=== PATIENT | male | born 1975 | race African-American/Black ===

== ENCOUNTER 2018-03-26 20:48 | Emergency (ER) | payer SELFPAY ==
[~2018-03-26] VITALS: Ht 177.8 cm; Wt 100.0 kg
[2018-03-26 20:58] VITALS: BP 205/125; PULSE 88; RESP 18; TEMP 99; O2SAT 97
[2018-03-26] MEDS ORDERED: SODIUM CHLOR 0.9% 1000 ML INJ 1,000 ML IV SCH (20:58)
--- NOTE | 2018-03-26 20:58 | PD ---
HPI Chief Complaint: Shoulder pain Time Seen by Provider: 20:53 Travel History International Travel<30 days: No Contact w/Intl Traveler<30days: No Traveled to known affect area: No History of Present Illness HPI This is a 42-year-old male who presents via EMS for evaluation of left shoulder pain. He reports that 2 3 hours prior to arrival he slipped in his kitchen and fell, landing directly on his left shoulder. Denies any head injury. He felt immediate pain in his left shoulder which is moderate to severe, throbbing, constant, worse with any sort of movement. Denies any numbness or tingling distal to the injury site. Endorses drinking 4 beers today. He reports that he received 8 mg of morphine by EMS en route with minimal relief. He has no other complaints at this time. [facility] Social History Alcohol Use: No Tobacco Use: Yes Substance Use: Yes (Marijuana) Allergies-Medications (Allergen,Severity, Reaction): Coded Allergies: No Known Allergies (Unverified , 03/26/18) Reported Meds & Prescriptions Reported Meds & Active Scripts Active Tylenol-Codeine #3 (Acetaminophen-Codeine) 300-30 mg Tab 1 Tab PO Q6H PRN Review of Systems Except as stated in HPI: all other systems reviewed are Neg Physical Exam Narrative GENERAL: This is a well-developed well-nourished male who appears uncomfortable on initial examination. SKIN: Warm and dry. No open wounds. HEAD: Atraumatic. Normocephalic. EYES: Pupils equal and round. No scleral icterus. No injection or drainage. ENT: No nasal bleeding or discharge. Mucous membranes pink and moist. NECK: Trachea midline. No JVD. CARDIOVASCULAR: Regular rate and rhythm. No murmur appreciated. RESPIRATORY: No accessory muscle use. Clear to auscultation. Breath sounds equal bilaterally. GASTROINTESTINAL: Abdomen soft, non-tender, nondistended. Hepatic and splenic margins not palpable. MUSCULOSKELETAL: No obvious deformities. Deformity left shoulder with a gap in the glenohumeral joint. 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 Normal flexion and extension of the left wrist. Capillary refill less than 2 seconds all digits left hand. 2+ radial pulse. NEUROLOGICAL: Awake and alert. No obvious cranial nerve deficits. Motor grossly within normal limits. Normal speech. Data Data Last Documented VS Vital Signs Date Time Temp Pulse Resp B/P (MAP) Pulse Ox O2 Delivery O2 Flow Rate FiO2 03/26/18 20:58 99.0 88 18 205/125 (151) 97 Orders Orders Shoulder, Limited(2vws) (03/26/18 ) Propofol 200 Mg/20 Ml Inj (Diprivan 200 (03/26/18 21:00) Ecg Monitoring (03/26/18 20:58) Sodium Chlor 0.9% 1000 Ml Inj (Ns 1000 M (03/26/18 20:58) Shoulder, One View (03/26/18 ) Splint Or Brace Apply/Monitor (03/26/18 21:41) Shoulder, One View (03/26/18 ) Ed Discharge Order (03/26/18 22:21) MDM Medical Decision Making Medical Screen Exam Complete: Yes Emergency Medical Condition: Yes Medical Record Reviewed: Yes Differential Diagnosis Shoulder dislocation, proximal humeral fracture, scapular fracture, apical fracture, rotator cuff tear Narrative Course X-ray imaging left shoulder was obtained revealing a shoulder dislocation. The patient signed consents for procedural sedation and closed reduction of the left shoulder which was performed successfully. Shoulder sling and swath applied. After reduction was achieved the patient reportedly lifted his arm over his head and thrashed around while the x-ray fuel conversion technician was attempting to obtain postreduction x-ray. Therefore postreduction x-ray reveals persistent dislocation. Closed reduction was again performed and postreduction x-ray confirms normal anatomic alignment. Sling and swath applied. The patient will be discharged when he is sober. Procedures Procedure Narrative Closed reduction left shoulder: After conscious sedation was achieved closed reduction was achieved using traction and external rotation. The left arm was then placed in a sling. Capillary refill less than 2 seconds in all digits of the left hand, 2+ radial pulse after the procedure. Diagnosis Primary Impression: Dislocation of left shoulder joint Referrals: Orthopedist Additional Instructions: Sling, follow-up with an orthopedist in the next week, return for any emergent medical conditions. Med/Other Pt SpecificInfo: Prescription(s) given, Orthopedic Instructions Scripts Acetaminophen-Codeine (Tylenol-Codeine #3) 300-30 mg Tab 1 TAB PO Q6H Y for PAIN, #12 TAB 0 Refills Prov: Jose Butler MD 6/26/18 Disposition: 01 DISCHARGE HOME Condition: Stable Bruno,Dennis P. PA Mar 26, 2018 20:58
[2018-03-26] MEDS ORDERED: PROPOFOL 200 MG/20 ML AMP IV ONE (21:00)
--- NOTE | 2018-03-26 21:07 | PD ---
Physical Exam Date Seen by Provider: Mar 26, 2018 Time Seen by Provider: 21:03 Narrative The patient is a 42-year-old -[place] male was initially evaluated by the mid-level provider. Please refer to the initial history, physical, diagnostic evaluation, and treatment modality plan. The patient states he had approximately 4 beers to drink earlier tonight, fell on his left shoulder, he thinks he has a left shoulder dislocation. The patient is right-hand dominant. Symptoms are moderate. Worse with movement, slightly alleviated at rest and with morphine administered by EMS prior to arrival. Data Data Last Documented VS Vital Signs Date Time Temp Pulse Resp B/P (MAP) Pulse Ox O2 Delivery O2 Flow Rate FiO2 03/26/18 20:58 99.0 88 18 205/125 (151) 97 Orders Orders Shoulder, Limited(2vws) (03/26/18 ) Propofol 200 Mg/20 Ml Inj (Diprivan 200 (03/26/18 21:00) Ecg Monitoring (03/26/18 20:58) Sodium Chlor 0.9% 1000 Ml Inj (Ns 1000 M (03/26/18 20:58) Shoulder, One View (03/26/18 ) Splint Or Brace Apply/Monitor (03/26/18 21:41) Shoulder, One View (03/26/18 ) Ed Discharge Order (03/26/18 22:21) [facility] Medical Record Reviewed: Yes Supervised Visit with SAMREEN: Yes Interpretation(s) Last Impressions Shoulder X-Ray 03/26/18 0000 Signed Impressions: CONCLUSION: Interval relocation of the left humeral head. Shoulder X-Ray 03/26/18 0000 Signed Impressions: CONCLUSION: Continued dislocation of the left glenohumeral joint. Shoulder X-Ray 03/26/18 0000 Signed Impressions: CONCLUSION: Dislocation of the left shoulder. Differential Diagnosis Differential diagnosis includes shoulder dislocation, fracture, sprain, strain, acromioclavicular separation, rib fracture, nerve injury. Narrative Course I, Dr. Butler, have reviewed the advance practice practitioner's documentation and am in agreement, met with the patient face to face, made the diagnosis, and the medical decision making was done by me. *My assessment and Findings: Patient has tenderness over the left shoulder after falling earlier tonight on the left shoulder. Patient complains of pain with any type of movement of the left upper extremity. He is right-hand dominant. Physical examination reveals an apparent separation of the left shoulder. He is able to extend the left wrist. Intrinsic hand muscles on the left hand are intact. The patient denies any chronic medical problems for which he takes medications, does have a history of previous surgery on the neck and back as well as abdominal hernia repair with mesh. He denies taking any medications on a daily basis. X-ray of the left shoulder was obtained. X-ray reveals dislocation of the shoulder. The patient had conscious sedation with propofol, the shoulder was reduced. However, the patient awakened prior to post reduction x-ray and moved his left arm above his head, thus re-dislocating the affected shoulder. The patient was administered a second dose of propofol, the shoulder was reduced, placed in a sling, immediate x-ray was obtained which reveals proper reduction. The patient was then given a p.o. challenge, was able tolerate p.o. fluids. He was then ambulated, was able to ambulate was discharged home with family member. Procedures Procedure Narrative After the risks and benefits were discussed the following procedure was performed: MODERATE SEDATION: The patient was placed on a telemetry monitor and pulse oximetry. An ambu bag and suction was immediately available at bedside. The patient was monitored by the nurse. Oxygen saturation, heart rate and blood pressure were monitored. Procedural sedation was acheived using propofol. The patient was observed until awake and alert. Procedural Sedation time in attendance was 35 minutes. Diagnosis Primary Impression: Dislocation of left shoulder joint Qualified Codes: S43.005A - Unspecified dislocation of left shoulder joint, initial encounter Patient Instructions: General Instructions, Moderate Sedation (ED) Additional Instruction: Sling as directed. Follow-up with your primary physician and orthopedics. Ibuprofen as needed for pain. Apply ice to the affected area. Med/Other Pt SpecificInfo: Prescription(s) given Scripts Acetaminophen-Codeine (Tylenol-Codeine #3) 300-30 mg Tab 1 TAB PO Q6H Y for PAIN, #12 TAB 0 Refills Prov: Jose Butler MD 03/26/18 Disposition: 01 DISCHARGE HOME Condition: Stable Jose Butler MD Mar 26, 2018 21:07
--- NOTE | 2018-03-26 21:17 | RADRPT ---
EXAM DATE: 03/26/2018 9:13 PM EDT AGE/SEX: 42 years / Male INDICATIONS: Slip and fell on left shoulder. CLINICAL DATA: This is the patient's initial encounter. Patient reports that signs and symptoms have been present for 1 day and indicates a pain score of 10/10. MEDICAL/SURGICAL HISTORY: None. None. COMPARISON: No prior exams available for comparison. FINDINGS: The examination demonstrates anterior dislocation of the glenohumeral joint. No acute fracture is see n. The limited portion of lung apex visualized is clear. CONCLUSION: Dislocation of the left shoulder. Electronically signed by: Juliocesar Burden MD 03/26/2018 9:15 PM EDT
--- NOTE | 2018-03-26 22:05 | RADRPT ---
EXAM DATE: 03/26/2018 9:55 PM EDT AGE/SEX: 42 years / Male INDICATIONS: Attempted left shoulder post reduction. CLINICAL DATA: This is the patient's subsequent encounter. Patient reports that signs and symptoms h ave been present for 1 day and indicates a pain score of Nonresponsive. MEDICAL/SURGICAL HISTORY: Non-responsive. Non-responsive. COMPARISON: No prior exams available for comparison. FINDINGS: The examination demonstrates continued dislocation of the left glenohumeral joint. No definite fractures seen. The lung apex visualized is clear. CONCLUSION: Continued dislocation of the left glenohumeral joint. Electronically signed by: Juliocesar Burden MD 03/26/2018 10:04 PM EDT
--- NOTE | 2018-03-26 22:19 | RADRPT ---
EXAM DATE: 03/26/2018 10:12 PM EDT AGE/SEX: 42 years / Male INDICATIONS: Post reduction left shoulder. CLINICAL DATA: This is the patient's subsequent encounter. Patient reports that signs and symptoms h ave been present for 1 day and indicates a pain score of Nonresponsive. MEDICAL/SURGICAL HISTORY: Non-responsive. Non-responsive. [place] [facility] [place]1 VW[place]26/2018. . FINDINGS: The examination demonstrates interval relocation of the left humeral head. It is now situated within the glenohumeral joint. CONCLUSION: Interval relocation of the left humeral head. Electronically signed by: Juliocesar Burden MD 03/26/2018 10:18 PM EDT
[2018-03-26] MEDS ORDERED: TYLETAB34 PO (22:30)
== END 2018-03-26 23:53 | disposition home or self-care (01) ==
LOC: NEPD 20:48
DX: S43.005A Unspecified dislocation of left shoulder joint, initial encounter (principal); Z72.0 Tobacco use; F12.90 Cannabis use, unspecified, uncomplicated; W01.0XXA Fall on same level from slipping, tripping and stumbling without subsequent striking against object, initial encounter; Y92.000 Kitchen of unspecified non-institutional (private) residence as the place of occurrence of the external cause
CPT/HCPCS: 23650; 73020; 73030; 99284; J7030